=== PATIENT | female | born 1975 | race Caucasian/White ===

== ENCOUNTER 2019-02-20 08:14 | Day surgery (SDC) | payer BC ==
[~2019-02-20] VITALS: Ht 165.1 cm; Wt 101.0 kg
[~2019-02-20 08:14] MED LIST: ALBUTEROL INHALER; ANTI DEPRESSANT; IRON SUPPLEMENTS; PREN-20 PO; SINGULAIR
[2019-02-20 09:03] VITALS: Ht 165.1 cm; Wt 101.0 kg
[2019-02-20 09:53] VITALS: BP 100/66; PULSE 77; RESP 18
[2019-02-20] MEDS ORDERED: FENTAnyl 50 MCG/ML VIAL ONE (10:08)
[2019-02-20] MEDS ORDERED: PROPOFOL 20 ML ONE (10:08)
[2019-02-20] MEDS ORDERED: ETOMIDATE 20 MG INJ ONE (10:09)
[2019-02-20] MEDS ORDERED: LIDOCAINE 4% SOLUTION 50 ML BTL ONE (10:09)
--- NOTE | 2019-02-20 10:10 | PREAC ---
Date/Time of Note Date/Time of Note DATE: 02/20/19 TIME: 10:09 Anesthesia Eval and Record Evaluation Time Pre-Procedure Interview DATE: 02/20/19 TIME: 10:09 Age 43 Sex female NPO: 8 hrs Preoperative diagnosis vomiting / diarrhea Planned procedure egd / colonoscopy Past Medical History Past Medical History: Includes Neuro: CVA GI: Obesity Heme: Anemia Psych: Depression Surgery & Anesthesia Issues No known issue Meds Anticoagulation: No Beta Beulah within 24 hr: No Reason Beta Beulah not given: Pt. not on B-Beulah Reported Medications [Anti Depressant] No Conflict Check 02/20/19 [Singulair] No Conflict Check 02/20/19 [Albuterol Inhaler] No Conflict Check 02/20/19 [Iron Supplements] No Conflict Check 02/20/19 Vit 15/Iron Cb/Fa/Dss ( Ad Tablet) 1 Tab Tablet, 1 TAB PO DAILY 11/26/13 Meds reviewed: Yes Allergies Uncoded Allergies: PENICILLIN (Allergy, Unknown, 02/20/19) Allergies Reviewed: Yes Labs/Studies Labs Reviewed: Reviewed by anesthesiologist test: N/A Pre-procedure Exam Last vitals Vital Signs Date Temp Pulse Resp B/P (MAP) Pulse Ox O2 O2 Flow FiO2 Time Delivery Rate 02/20/19 98.0 77 18 100/66 97 Room Air 09:53 (77) Airway: Adequate mouth opening Mallampati: Mallampati II Teeth: Normal Lung: Normal Heart: Normal ASA Physical Status ASA physical status: 3 Emergency: None Planned Anesthetic General/MAC: MAC Pre-operative Attestations Prior to commencing anesthesia and surgery, the patient was re-evaluated, there was verification of: *The patient's identity *The results of appropriate recent lab work and preoperative vital signs *The above evaluation not changing prior to induction *Anesthetic plan, risk benefits, alternative and complications discussed with patient/family; questions answered; patient/family understands, accepts and wishes to proceed. LUCIA CANCHOLA DO Feb 20, 2019 10:10
[2019-02-20 11:10] VITALS: BP 140/78; PULSE 72; RESP 18
--- NOTE | 2019-02-20 18:06 | PAC ---
Date/Time of Note Date/Time of Note DATE: 02/20/19 TIME: 18:05 Post-Anesthesia Notes Post-Anesthesia Note Last documented vital signs Vital Signs Date Temp Pulse Resp B/P (MAP) Pulse Ox O2 O2 Flow FiO2 Time Delivery Rate 02/20/19 72 18 140/78 100 Room Air 11:10 (98) 02/20/19 98.0 09:53 Activity: WNL Respiratory function: WNL Cardiovascular function: WNL Mental status: Baseline Pain reasonably controlled: Yes Hydration appropriate: Yes Nausea/Vomiting absent: Yes LUCIA CANCHOLA DO Feb 20, 2019 18:06
== END 2019-02-20 12:57 | disposition home or self-care (01) ==
LOC: GIL 08:14
PROVIDERS: ATTEND Internal Medicine Gastroenterology
DX: K64.8 Other hemorrhoids (principal); K29.50 Unspecified chronic gastritis without bleeding; Z86.73 Personal history of transient ischemic attack (TIA), and cerebral infarction without residual deficits
CPT/HCPCS: 43239; 45380; 88305; 88312; J3010; Z7610